=== PATIENT | female | born 1980 | race African-American/Black ===

== ENCOUNTER 2021-07-22 05:20 | Emergency (ER) | payer MEDICAID ==
[~2021-07-22] VITALS: Ht 162.6 cm; Wt 74.8 kg
--- NOTE | 2021-07-22 05:20 | NUR ---
ARTURO DASILVA. TAKEN TO CHAIR C
[2021-07-22 05:22] VITALS: BP 140/95
[2021-07-22] MEDS ORDERED: ACETAMINOPHEN EXTRA STRENGTH 500 MG TAB PO ONE (05:30)
--- NOTE | 2021-07-22 05:36 | NUR ---
PATIENT BIB [facility] DEPT. PATIENT EXAMINED BY DR. PAGAN. PATIENT MEDICALLY CLEARED AND RELEASED IN CUSTODY IN STABLE CONDITION. ORIGINAL PRE-BOOK FORM GIVEN TO OFFICER CAROLINE, #[id number] .
== END 2021-07-22 05:36 ==
LOC: MED 05:20
DX: S20.229A Contusion of unspecified back wall of thorax, initial encounter (principal); S09.90XA Unspecified injury of head, initial encounter; Z02.89 Encounter for other administrative examinations; Y04.2XXA Assault by strike against or bumped into by another person, initial encounter; Y93.89 Activity, other specified; Y92.89 Other specified places as the place of occurrence of the external cause; Y99.8 Other external cause status
CPT/HCPCS: 99283